=== PATIENT | female | born 1990 | race Caucasian/White ===

== ENCOUNTER 2017-01-06 11:30 | Inpatient (IN) ==
[2017-01-06] MEDS ORDERED: PITOCIN 30 UNITS/LR 30 UNITS/500 ML IV.SOLN IV SCH (20:04)
[2017-01-06] MEDS ORDERED: ZOFRAN IV PRN (20:04)
[2017-01-06] MEDS ORDERED: STADOL IV PRN ×2 (20:04)
[2017-01-06] MEDS ORDERED: BRETHINE SUBQ PRN (20:04)
[2017-01-06] MEDS ORDERED: PEPCID PO PRN (20:04)
[2017-01-06] MEDS ORDERED: AMBIEN PO PRN (20:04)
[2017-01-06] MEDS ORDERED: KEFZOL 1 GM/D5W 1 GM/50 ML IVPB IV PRN (20:04)
[2017-01-06] MEDS ORDERED: TYLENOL PO PRN (20:04)
[2017-01-06] MEDS ORDERED: PEPCID IV PRN (20:04)
[2017-01-06] MEDS: LR 1,000 ML IV ONE (21:20)
[2017-01-06 21:44] LABS: MANUAL DIFF NEEDED? NO
[2017-01-06 21:51] LABS: BASO% 0.2 % (0.0-0.8); EOS% 1.1 % (0.0-10.0); HEMATOCRIT 34.6 % (37.0-47.0); HEMOGLOBIN 12.3 g/dL (12.0-16.0); IMM GRAN# 0.03 X1000 (0.0-0.04); IMM GRAN% 0.3 % (0.0-0.5); LYMPH% 22.2 % (20.5-51.1); MCH 33.3 PG (27-31); MCHC 35.5 g/dL (33-37); MCV 93.8 FL (81-99); MONO# 0.72 X1000 (0.11-0.59); MPV 10.3 FL (7.4-10.4); NEUT% 68.2 % (42.2-75.2); PLT 224 X1000 (130-400); RBC 3.69 XMIL (4.2-5.4)
[2017-01-06 21:56] LABS: UR AMPHETAMINES QUAL NONE DETECTED (NONE DETECT); UR BARBITUATES QUAL NONE DETECTED (NONE DETECT); UR BENZODIAZEPIN QUAL NONE DETECTED (NONE DETECT); UR CANNABINOIDS QUAL NONE DETECTED (NONE DETECT); UR COCAINE QUAL NONE DETECTED (NONE DETECT); UR MDMA QUAL NONE DETECTED (NONE DETECT); UR METHADONE QUAL NONE DETECTED (NONE DETECT); UR METHAMPHETAMINE QUAL NONE DETECTED (NONE DETECT); UR OPIATES QUAL NONE DETECTED (NONE DETECT); UR OXYCODONE QUAL NONE DETECTED (NONE DETECT); UR PCP QUAL NONE DETECTED (NONE DETECT); UR TCA QUAL NONE DETECTED (NONE DETECT)
[2017-01-06] MEDS ORDERED: CYTOTEC PO ONE (23:00)
[2017-01-07] MEDS: STADOL IV PRN ×4 (00:38→07:12)
[2017-01-07] MEDS: CYTOTEC PO SCH ×2 (02:52→14:13)
[2017-01-07] MEDS ORDERED: FENTANYL-BUPIV-NS 2 MCG-0.1% 200 ML EPIDURAL SCH (08:00)
[2017-01-07] MEDS: LR 1,000 ML IV ONE (08:09)
[2017-01-07] MEDS ORDERED: MINERAL OIL PO ONE (12:42)
[2017-01-07] MEDS ORDERED: BOOSTRIX VACCINE IM ONE (13:22)
[2017-01-07] MEDS ORDERED: HYDROXYZINE PO PRN (13:22)
[2017-01-07] MEDS ORDERED: BENADRYL PO PRN (13:22)
[2017-01-07] MEDS ORDERED: BENADRYL IV PRN (13:22)
[2017-01-07] MEDS ORDERED: CYTOTEC PO PRN (13:22)
[2017-01-07] MEDS ORDERED: PITOCIN 30 UNITS/LR 30 UNITS/500 ML IV.SOLN IV ONE (13:22)
[2017-01-07] MEDS ORDERED: PITOCIN IM PRN (13:22)
[2017-01-07] MEDS ORDERED: PERI MEDS (DERMOPLAST/NUPERCAINAL/TUCKS) MISC PRN (13:22)
[2017-01-07] MEDS ORDERED: PITOCIN 20 UNITS/LR 20 UNITS/1,000 ML IV.SOLN IV SCH (13:22)
[2017-01-07] MEDS ORDERED: XYLOCAINE-MPF 1% INJ PRN (13:22)
[2017-01-07] MEDS ORDERED: MINERAL OIL PO PRN (13:22)
[2017-01-07] MEDS ORDERED: AMBIEN PO PRN (13:22)
[2017-01-07] MEDS ORDERED: M-M-R II VACCINE SUBQ ONE (13:22)
[2017-01-07] MEDS ORDERED: HYDROXYZINE IM PRN (13:22)
--- NOTE | 2017-01-07 15:02 | OPERATIVE NOTE ---
PROCEDURE DATE: 01/07/2017 PREDELIVERY DIAGNOSES: 1. Intrauterine at term. 2. Tobacco use. POST DELIVERY DIAGNOSES: 1. Intrauterine at term. 2. Tobacco use. PROCEDURE: Vacuum assisted vaginal delivery. DELIVERY SURGEON: Joel Costa MD FINDINGS: Viable male . Do not have weight or Apgars. No lacerations or tears. Cord 3 vessels. Placenta spontaneous, intact. ESTIMATED BLOOD LOSS: 100 mL. COUNTS: All counts correct. DELIVERY NOTE: Please refer to Ms. Kelly's records. Ms Kelly is a 26-year-old, who presents for labor induction last evening. This morning she was artificially ruptured, began on Pitocin, received epidural anesthesia and labored without distress or dystocia. Became complete, began pushing, had some heart rate deceleration. The infant was occiput anterior, +3 station. The vacuum was applied, however, difficulty with the vacuum maintaining suction I think due to mineral oil being used previous to the vacuum being placed. So allowed patient to labor down more. heart tones were dropping, however, there was good [id number]. Once baby was at +5 station, the head was wiped off and the vacuum was wiped off. The vacuum was reapplied and with next push, the delivered occiput anterior over an intact perineum. Shoulders delivered with moderate difficulty, followed by the rest of the body. Cord was doubly clamped and cut and care of was taken over by nursery personnel. Cord blood was obtained. It was a thick healthy cord, 3 vessels were noted. Once cord blood was obtained, gentle traction on the cord resulted in delivery of the placenta. It was inspected, found to be intact. Inspection of the vagina and perineum was without lacerations. There were no clots or foreign material in the vaginal vault. All counts were correct. Estimated blood loss was 100 mL. Expect routine . cc: Joel Costa MD
[2017-01-07] MEDS: MOTRIN PO PRN (15:49)
[2017-01-07] MEDS: NORCO-10 PO PRN (15:51)
[2017-01-07] MEDS: PERICOLACE PO SCH (20:40)
[2017-01-08] MEDS: NORCO-5 PO PRN ×3 (00:47→13:29)
[2017-01-08] MEDS: MOTRIN PO PRN ×2 (00:48→13:29)
[2017-01-08 05:51] LABS: MANUAL DIFF NEEDED? NO
[2017-01-08 05:59] LABS: BASO% 0.2 % (0.0-0.8); EOS# 0.17 X1000 (0.0-0.7); EOS% 1.5 % (0.0-10.0); HEMOGLOBIN 12.4 g/dL (12.0-16.0); IMM GRAN# 0.02 X1000 (0.0-0.04); IMM GRAN% 0.2 % (0.0-0.5); LYMPH# 2.73 X1000 (1.2-3.4); LYMPH% 24.2 % (20.5-51.1); MCHC 34.4 g/dL (33-37); MCV 95.7 FL (81-99); MONO# 0.66 X1000 (0.11-0.59); MONO% 5.8 % (1.7-9.3); MPV 10.3 FL (7.4-10.4); NEUT% 68.1 % (42.2-75.2); PLT 199 X1000 (130-400); RBC 3.76 XMIL (4.2-5.4)
[2017-01-08] MEDS: NORCO-10 PO PRN ×2 (07:58→21:04)
[2017-01-08] MEDS: PERICOLACE PO SCH (21:04)
[2017-01-09] MEDS: NORCO-10 PO PRN ×2 (02:56→07:16)
[2017-01-09] MEDS: MOTRIN PO PRN ×2 (02:56→13:07)
[2017-01-09 11:25] VITALS: BP 124/71
[2017-01-09] MEDS: NORCO-5 PO PRN (13:07)
== END 2017-01-09 16:25 | disposition home or self-care (01) ==
LOC: P.LD 20:01 → P.WC 01-07 17:31
PROVIDERS: ADMIT Obstetrics & Gynecology; ATTEND Obstetrics & Gynecology